=== PATIENT | male | born 1960 | race Hispanic/Latino ===

== ENCOUNTER 2019-12-27 08:11 | Emergency (ER) | payer SELFPAY ==
[2019-12-27 08:18] VITALS: BP 185/108
== END 2019-12-27 08:30 | disposition left against medical advice (07) ==
LOC: ED 08:11
DX: M54.9 Dorsalgia, unspecified (principal); Z53.21 Procedure and treatment not carried out due to patient leaving prior to being seen by health care provider

== ENCOUNTER 2021-02-13 08:40 | Emergency (ER) | payer MEDICARE ==
[2021-02-13 08:48] VITALS: BP 178/106
[2021-02-13] MEDS ORDERED: KETOROLAC 60 MG/2 ML INJ IM ONE (09:35)
--- NOTE | 2021-02-13 09:39 | Emergency Department Report ---
ED Back Pain/Injury HPI - General Chief Complaint: Back Pain/Injury Stated Complaint: BACK PAIN Time Seen by Provider: 02/13/21 09:23 Source: patient Limitations: No Limitations - History of Present Illness Initial Comments: 60-year-old male with a history of chronic back pain. States his back has been hurting for the last 4 to 5 weeks. He has a history of back surgery back in 1996 had been with pain management. But states that he lost transportation and has not been able to go to his pain management doctor for about 6 months now. Patient has no other complaints it is noted that his blood pressure is 178/106 patient states that he has a follow-up appointment with PCP which she plans to schedule on Monday and will discuss his blood pressure with his doctor then. He denies any recent falls or trauma he has no difficulty walking no bowel or bladder incontinence. Well-appearing 60-year-old male in no acute distress -: week(s) Similar Symptoms Previously: Yes (HasBack surgery in 1996) Radiation: other (Right lower back) Severity scale (0 -10): 6 Quality: aching Consistency: constant Improves With: none Worsens With: none Associated Symptoms: denies other symptoms - Related Data Previous Rx's Medication Instructions Recorded Last Taken Type traMADoL [Ultram 50 MG tab] 50 mg PO Q6HR PRN #15 tablet 02/13/21 Unknown Rx Allergies Allergy/AdvReac Type Severity Reaction Status Date / Time No Known Allergies Allergy Unverified 12/27/19 08:13 ED Review of Systems ROS: Stated complaint: BACK PAIN Other details as noted in HPI Comment: All other systems reviewed and negative Constitutional: denies: chills, fever, weakness ENT: denies: ear pain, dental pain, hearing loss Respiratory: no symptoms reported. denies: shortness of breath, wheezing Cardiovascular: denies: chest pain, palpitations, dyspnea on exertion Gastrointestinal: denies: abdominal pain, constipation Musculoskeletal: back pain (Right lower back) Neurological: denies: headache, numbness Psychiatric: denies: anxiety, auditory hallucinations, suicidal thoughts ED Past Medical Hx - Past Medical History Previous Medical History?: Yes - Surgical History Past Surgical History?: Yes Additional Surgical History: BACK - Social History Smoking Status: Current Every Day Smoker Substance Use Type: None - Medications Home Medications: Home Medications Medication Instructions Recorded Confirmed Last Taken Type traMADoL [Ultram 50 MG tab] 50 mg PO Q6HR PRN #15 tablet 02/13/21 Unknown Rx ED Physical Exam - General Limitations: No Limitations General appearance: alert, in no apparent distress - Head Head exam: Present: atraumatic, normal inspection - Eye Eye exam: Present: normal appearance - ENT ENT exam: Present: normal exam - Respiratory Respiratory exam: Present: normal lung sounds bilaterally - Cardiovascular Cardiovascular Exam: Present: regular rate - GI/Abdominal GI/Abdominal exam: Present: soft. Absent: distended, tenderness - Rectal Rectal exam: Present: deferred - Extremities Exam Extremities exam: Present: normal inspection - Back Exam Back exam: Present: normal inspection, full ROM, paraspinal tenderness (Right). Absent: vertebral tenderness, rash noted - Neurological Exam Neurological exam: Present: alert, oriented X3 - Psychiatric Psychiatric exam: Present: normal affect - Skin Skin exam: Present: warm, dry, intact, normal color ED Course Vital Signs 02/13/21 02/13/21 08:43 09:40 Temperature 98 F Pulse Rate 105 H Respiratory 16 18 Rate Blood Pressure 178/106 O2 Sat by Pulse 96 Oximetry ED Medical Decision Making - Medical Decision Making 60-year-old male with a history of chronic back pain he reports a history of back surgery back in 1996. He reports having lower back pain over the last 4 to 5 weeks. Patient lost his transportation to pain management states he has not had any follow-up with pain management for 6 months. He denies any falls any traumas any known injuries no new motor vehicle accidents he has no bowel or bladder incontinence he walks with a steady gait. This is chronic back pain plan to refer patient for outpatient follow-up he is given Toradol 60 IM and a short course of tramadol Critical Care Time: No Critical care attestation.: If time is entered above; I have spent that time in minutes in the direct care of this critically ill patient, excluding procedure time. ED Disposition Clinical Impression: Chronic low back pain Qualifiers: Back pain laterality: right Sciatica presence: without sciatica Qualified Code(s): M54.5 - Low back pain Disposition: TO HOME OR SELFCARE Is pt being admited?: No Does the pt Need Aspirin: No Condition: Stable Instructions: Chronic Back Pain, [id number], Pain Medicine Instructions, [id number] Additional Instructions: Take medication as prescribed. Follow-up with your PCP or with Dr. Jaffe .Please follow-up regarding your blood pressure your blood pressure reading was 178/106 in the emergency room today it is imperative that you seek follow-up for treatment and management of your blood pressure. If you develop headache chest pain or shortness of breath or weakness please repeat return to the emergency room immediately Prescriptions: traMADoL [Ultram 50 MG tab] 50 mg PO Q6HR PRN #15 tablet PRN Reason: Pain Referrals: PRIMARY CAREMD [Referring] - 3-5 Days BOGDAN JAFFE MD [Staff Physician] - 3-5 Days Time of Disposition: 09:46
== END 2021-02-13 09:51 | disposition home or self-care (01) ==
LOC: ED 08:40
DX: M54.5 Low back pain (principal); G89.29 Other chronic pain; F17.200 Nicotine dependence, unspecified, uncomplicated; Z79.899 Other long term (current) drug therapy; Z98.890 Other specified postprocedural states
CPT/HCPCS: 96372; 99282; J1885

== ENCOUNTER 2021-04-18 13:46 | Emergency (ER) | payer MEDICARE | END 2021-04-18 19:00 | LOC: ED 13:46 | DX: M54.6 Pain in thoracic spine (principal); Z53.21 Procedure and treatment not carried out due to patient leaving prior to being seen by health care provider ==

== ENCOUNTER 2021-05-04 14:26 | Emergency (ER) | payer MEDICARE | END 2021-05-04 15:46 | disposition left against medical advice (07) | LOC: ED 14:26 | DX: R69 Illness, unspecified (principal); Z53.21 Procedure and treatment not carried out due to patient leaving prior to being seen by health care provider ==

== ENCOUNTER 2021-05-04 17:53 | Emergency (ER) | payer MEDICARE ==
--- NOTE | 2021-05-04 19:47 | Event Note ---
ED Screening Note Date of service: 05/04/21 Time: 19:46 ED Screening Note: 60-year-old male presents to the ER today with complaints of substernal chest pain. Onset 2 days ago. It was intermittent at first but he states that it became constant today. He reports pain is worse if very deep breath he also reports feeling dizzy and difficulty focusing. Past medical history significant for hypertension. This initial assessment/diagnostic orders/clinical plan/treatment(s) is/are subject to change based on patients health status, clinical progression and re- assessment by fellow clinical providers in the ED. Further treatment and workup at subsequent clinical providers discretion. Patient/guardian urged not to elope from the ED as their condition may be serious if not clinically assessed and managed. Initial orders include: Chest pain order set
[2021-05-04 20:02] LABS: Basophils # (Auto) 0.1 K/mm3 (0.0-0.1); Basophils % (Auto) 0.8 % (0.0-1.8); Eosinophils # (Auto) 0.1 K/mm3 (0.0-0.4); Hematocrit 37.8 % (35.5-45.6); Hemoglobin 12.9 gm/dl (11.8-15.2); Lymphocytes # (Auto) 1.2 K/mm3 (1.2-5.4); Lymphocytes % (Auto) 16.6 % (13.4-35.0); Mean Corpuscular HGB Conc 34 % (32-34); Mean Corpuscular Volume 96 fl (84-94); Monocytes # (Auto) 0.7 K/mm3 (0.0-0.8); Monocytes % (Auto) 9.7 % (0.0-7.3); Platelet Count 187 K/mm3 (140-440); Red Blood Count 3.93 M/mm3 (3.65-5.03); Red Cell Distribution Width 14.2 % (13.2-15.2)
[2021-05-04 20:09] LABS: INR 1.07 (0.87-1.13)
[2021-05-04 20:10] LABS: Partial Thromboplastin Time 38.6 Sec. (24.2-36.6)
[2021-05-04 20:24] LABS: Alanine Aminotransferase 14 units/L (7-56); Albumin 4.6 g/dL (3.9-5); BUN/Creatinine Ratio 23; Blood Urea Nitrogen 30 mg/dL (9-20); Calcium 9.4 mg/dL (8.4-10.2); Hemolysis Index 9
--- NOTE | 2021-05-04 20:43 | XRay Report ---
CHEST 2 VIEWS INDICATION: Chest Pain. COMPARISON: FINDINGS: Support devices: None. Heart: Within normal limits. Lungs: No acute air space or interstitial disease. Pleura: No significant pleural effusion. No pneumothorax. Additional findings: None. IMPRESSION: 1. No acute findings. Signer Name: Esa Batres MD Signed: 05/04/2021 8:39 PM Workstation Name: [id number]
--- NOTE | 2021-05-04 21:11 | Emergency Department Report ---
ED Chest Pain HPI - General Chief Complaint: Chest Pain Stated Complaint: CHEST PAIN PUI?: No Time Seen by Provider: 05/04/21 20:59 Source: patient Mode of arrival: Ambulatory Limitations: No Limitations - History of Present Illness Initial Comments: Chief complaint: "Tightness in my chest." HPI: This is a 60-year-old male with a history of tobacco dependence, hypertension who presents with chest tightness which began gradually 2 days ago. Chest tightness is mostly at rest. Worse with deep inspiration. Mild. No radiation. Dry cough. No fever no vomiting. No recent travel. No leg pain. Patient did not receive Covid 19 vaccine. Unknown's exposure. Patient is followed by PCP at [facility]. Patient is currently pain-free. No history of cardiac disease. No family history of cardiac disease. MD Complaint: chest pain -: Gradual, days(s) (2 days ago) Onset: during rest Pain Location: substernal Pain Radiation: none Severity: mild Severity scale (0 -10): 6 Quality: tightness Consistency: intermittent, now resolved Improves With: nothing Worsens With: inspiration Other Symptoms: cough Treatments Prior to Arrival: other (Transport per EMS) - Related Data Previous Rx's Medication Instructions Recorded Last Taken Type traMADoL [Ultram 50 MG tab] 50 mg PO Q6HR PRN #15 tablet 02/13/21 Unknown Rx Doxycycline Hyclate [Doxycycline 100 mg PO Q12HR 7 Days #14 tab 05/04/21 Unknown Rx Hyclate TAB] Prednisone [predniSONE 10 mg 10 mg PO .TAPER #1 tab.ds.pk 05/04/21 Unknown Rx (6-Day Pack, 21 Tabs)] Allergies Allergy/AdvReac Type Severity Reaction Status Date / Time No Known Allergies Allergy Unverified 12/27/19 08:13 Heart Score - HEART Score History: Slightly suspicious EKG: Non-specific Age: 45-65 Risk factors: 1-2 risk factors Troponin: < normal limit HEART Score: 3 - EKG Read Time Time EKG Completed: 18:54 EKG Read Time: 18:56 ED Review of Systems ROS: Stated complaint: CHEST PAIN Other details as noted in HPI Comment: All other systems reviewed and negative Constitutional: denies: fever, malaise Respiratory: cough. denies: shortness of breath Cardiovascular: chest pain Gastrointestinal: denies: abdominal pain, nausea, vomiting ED Past Medical Hx - Past Medical History Previous Medical History?: Yes Hx Hypertension: Yes - Surgical History Past Surgical History?: Yes Additional Surgical History: BACK - Family History Family history: no significant - Social History Smoking Status: Current Every Day Smoker Substance Use Type: None - Medications Home Medications: Home Medications Medication Instructions Recorded Confirmed Last Taken Type traMADoL [Ultram 50 MG tab] 50 mg PO Q6HR PRN #15 tablet 02/13/21 Unknown Rx Doxycycline Hyclate [Doxycycline 100 mg PO Q12HR 7 Days #14 tab 05/04/21 Unknown Rx Hyclate TAB] Prednisone [predniSONE 10 mg 10 mg PO .TAPER #1 tab.ds.pk 05/04/21 Unknown Rx (6-Day Pack, 21 Tabs)] ED Physical Exam - General Limitations: No Limitations General appearance: alert, in no apparent distress, other (Sleeping with covers over his head easily arousable) - Head Head exam: Present: atraumatic, normocephalic - Eye Eye exam: Present: normal appearance - ENT ENT exam: Present: mucous membranes moist - Neck Neck exam: Present: normal inspection - Respiratory Respiratory exam: Present: normal lung sounds bilaterally. Absent: respiratory distress, wheezes, rales, rhonchi - Cardiovascular Cardiovascular Exam: Present: regular rate, normal rhythm, normal heart sounds. Absent: systolic murmur, diastolic murmur, rubs, gallop - GI/Abdominal GI/Abdominal exam: Present: soft, normal bowel sounds. Absent: distended, ten derness, guarding, rebound - Rectal Rectal exam: Present: deferred - Extremities Exam Extremities exam: Present: normal inspection - Neurological Exam Neurological exam: Present: alert, oriented X3 - Psychiatric Psychiatric exam: Present: normal affect, normal mood - Skin Skin exam: Present: warm, dry, intact, normal color. Absent: rash ED Course Vital Signs 05/04/21 18:43 Temperature 98.3 F Pulse Rate 89 Respiratory 18 Rate Blood Pressure 154/88 [Right] O2 Sat by Pulse 97 Oximetry ED Medical Decision Making - Lab Data Result diagrams: 05/04/21 19:49 05/04/21 19:49 Laboratory Results - last 24 hr 05/04/21 05/04/21 05/04/21 19:49 19:49 19:49 WBC 7.0 RBC 3.93 Hgb 12.9 Hct 37.8 MCV 96 H MCH 33 H MCHC 34 RDW 14.2 Plt Count 187 Lymph % (Auto) 16.6 Potter % (Auto) 9.7 H Eos % (Auto) 2.0 Baso % (Auto) 0.8 Lymph # (Auto) 1.2 Potter # (Auto) 0.7 Eos # (Auto) 0.1 Baso # (Auto) 0.1 Seg Neutrophils % 70.9 H Seg Neutrophils # 5.0 PT 14.4 INR 1.07 APTT 38.6 H Sodium 138 Potassium 4.3 Chloride 100.8 Carbon Dioxide 27 Anion Gap 15 BUN 30 H Creatinine 1.3 Estimated GFR 56 BUN/Creatinine Ratio 23 Glucose 75 Calcium 9.4 Total Bilirubin 0.20 AST 21 ALT 14 Alkaline Phosphatase 62 Troponin T < 0.010 Total Protein 7.1 Albumin 4.6 Albumin/Globulin Ratio 1.8 Lipase 27 - EKG Data -: EKG Interpreted by Nd EKG shows normal: sinus rhythm, axis, intervals, QRS complexes Rate: normal - EKG Data Interpretation: nonspecific ST-T wave pooja, LVH 05/04/21 21:09 EKG obtained 1854 EKG interpreted by fl Normal sinus rhythm rate 85 bpm normal axis normal intervals no ST elevation nonspecific T wave pattern positive LVH - Radiology Data Radiology results: report reviewed Patient Name: MARISELA SALMON Gender: Male Date of : 1960 Referring Provider: LOC ANDERSON Organization: [facility] Accession Number: [id number] Requested Date: May 04, 2021 19:45 Report Status: Final Requested Procedure: 1 Procedure Description: XR chest routine 2V Modality: XR Findings Reporting MD: Esa Batres Dictation Time: May 04, 2021 19:39 Product Control And Logistics Analyst: Not available Catechist Date: CHEST 2 VIEWS INDICATION: Chest Pain. COMPARISON: FINDINGS: Support devices: None. Heart: Within normal limits. Lungs: No acute air space or interstitial disease. Pleura: No significant pleural effusion. No pneumothorax. Additional findings: None. IMPRESSION: 1. No acute findings. Signer Name: Esa Batres MD Signed: 05/04/2021 7:39 PM Workstation Name: [id number] - Medical Decision Making Chest pain: Atypical for ACS, troponin negative. EKG nonspecific. I suspect acute bronchitis with history of tobacco use. No indication of life-threatening causes such as pulmonary embolism, pneumonia, aortic dissection. Patient appears comfortable. I have referred patient to sales support advisor. I recommended outpatient evaluation. I also recommended tobacco cessation. Recommend follow- up with his PCP Brian Clovin. CBC chemistry within normal limits. Next Chest x-ray without acute findings. I have faxed cardiology referral request to [facility]. Patient prescribed prednisone doxycycline for acute bronchitis. Discharged home. Critical care attestation.: If time is entered above; I have spent that time in minutes in the direct care of this critically ill patient, excluding procedure time. ED Disposition Clinical Impression: Non-cardiac chest pain, Acute bronchitis Disposition: TO HOME OR SELFCARE Is pt being admited?: No Does the pt Need Aspirin: No Condition: Stable Instructions: Nonspecific Chest Pain, Adult, Acute Bronchitis (ED), Acute Bronchitis, Adult, [id number] Prescriptions: Doxycycline Hyclate [Doxycycline Hyclate TAB] 100 mg PO Q12HR 7 Days #14 tab Prednisone [predniSONE 10 mg (6-Day Pack, 21 Tabs)] 10 mg PO .TAPER #1 tab.ds.pk Referrals: ORESTES MANDEL MD [Staff Physician] - 3-5 Days PRIMARY CARE, [Referring] - 3-5 Days
[2021-05-04] MEDS ORDERED: ACETAMINOPHEN 500 MG TAB PO ONE (21:13)
[2021-05-04] MEDS ORDERED: predniSONE 20 MG TAB PO ONE (21:13)
[2021-05-04 21:30] VITALS: BP 139/79
--- NOTE | 2021-05-13 10:47 | Electrocardiograph Report ---
[facility] Test Date: 2021-05-04 Test Time: 18:54:55 Pat Name: MARISELA SALMON Department: Room: Gender: M Analyst [employer]: KEVEN : 1960 Requested By: LOC ANDERSON Order Number: [id number] Reading MD: Terrence Peck Measurements Intervals [place] Rate: 85 P: 53 NE: 154 QRS: 6 QRSD: 88 T: 63 QT: 384 QTc: 458 Interpretive Statements Sinus rhythm Probable left atrial enlargement Probable left ventricular hypertrophy Inferior infarct, old No previous ECG available for comparison Electronically Signed On 05-13-2021 10:47:21 EDT by Terrence Peck
== END 2021-05-04 21:43 | disposition home or self-care (01) ==
LOC: ED 17:53
DX: J20.9 Acute bronchitis, unspecified (principal); R07.89 Other chest pain; I10 Essential (primary) hypertension; F17.200 Nicotine dependence, unspecified, uncomplicated; Z98.890 Other specified postprocedural states; Z79.899 Other long term (current) drug therapy
CPT/HCPCS: 36415; 71046; 80053; 83690; 84484; 85025; 85610; 85730; 93005; 99284; J7512

== ENCOUNTER 2022-03-08 10:45 | Emergency (ER) | payer MEDICARE ==
[2022-03-08 10:50] VITALS: BP 181/100
[2022-03-08] MEDS ORDERED: CYCLOBENZAPRINE 10 MG TAB PO ONE (12:18)
[2022-03-08] MEDS ORDERED: oxyCODONE /ACETAMINOPHEN 5-325MG TAB PO ONE (12:18)
[2022-03-08] MEDS ORDERED: KETOROLAC 10 MG TAB PO ONE (12:18)
--- NOTE | 2022-03-08 12:19 | Emergency Department Report ---
ED Extremity Problem HPI - General Chief complaint: Extremity Injury, Lower Stated complaint: CHRONIC FOOT PAIN/RT Time Seen by Provider: 03/08/22 12:06 Source: EMS Mode of arrival: Ambulatory Limitations: No Limitations - History of Present Illness Initial comments: 61-year-old white male with a past medical history of hypertension and chronic back pain presents to the emergency department for evaluation of right foot pain lower back pain. He states that for the last month he has had pain on the bottom of his right foot. He denies injury. He also complains of worsening back pain he states that he has not been able to get his regular pain medication. He denies any injury to his back MD Complaint: extremity pain -: Gradual, month(s) (1) Location: right, other History of Same: Yes -: No myalgia, No arthralgia, No fever, No associated dyspnea, No associated chest pain Severity scale (0 -10): 2 Quality: aching Consistency: constant Associated Symptoms: denies: chest pain, shortness of breath, fever, myalgias, arthralgias, rash - Related Data Previous Rx's Medication Instructions Recorded Last Taken Type traMADoL [Ultram 50 MG tab] 50 mg PO Q6HR PRN #15 tablet 02/13/21 Unknown Rx Doxycycline Hyclate [Doxycycline 100 mg PO Q12HR 7 Days #14 tab 05/04/21 Unknown Rx Hyclate TAB] Prednisone [predniSONE 10 mg 10 mg PO .TAPER #1 tab.ds.pk 05/04/21 Unknown Rx (6-Day Pack, 21 Tabs)] Cyclobenzaprine [Flexeril] 10 mg PO TID PRN #21 tab 03/08/22 Unknown Rx Lidocaine [Lidoderm] 1 each TP DAILY #10 patch 03/08/22 Unknown Rx Salicylic Acid/Foot Cushion 15 ml TP Q72HR #1 pack 03/08/22 Unknown Rx [Liquid [place]ol[place] & Callus Remover] Allergies Allergy/AdvReac Type Severity Reaction Status Date / Time No Known Allergies Allergy Verified 03/08/22 10:50 ED Review of Systems ROS: Stated complaint: CHRONIC FOOT PAIN/RT Other details as noted in HPI Comment: All other systems reviewed and negative Constitutional: denies: chills, fever Respiratory: denies: shortness of breath, SOB at rest Cardiovascular: denies: chest pain, palpitations Gastrointestinal: denies: abdominal pain, nausea, vomiting, diarrhea Genitourinary: denies: urgency, dysuria, frequency, hematuria, discharge, testicular pain Musculoskeletal: back pain Neurological: denies: headache, weakness ED Past Medical Hx - Past Medical History Hx Hypertension: Yes - Surgical History Additional Surgical History: BACK - Social History Smoking Status: Current Every Day Smoker Substance Use Type: None - Medications Home Medications: Home Medications Medication Instructions Recorded Confirmed Last Taken Type traMADoL [Ultram 50 MG tab] 50 mg PO Q6HR PRN #15 tablet 02/13/21 Unknown Rx Doxycycline Hyclate [Doxycycline 100 mg PO Q12HR 7 Days #14 tab 05/04/21 Unknown Rx Hyclate TAB] Prednisone [predniSONE 10 mg 10 mg PO .TAPER #1 tab.ds.pk 05/04/21 Unknown Rx (6-Day Pack, 21 Tabs)] Cyclobenzaprine [Flexeril] 10 mg PO TID PRN #21 tab 03/08/22 Unknown Rx Lidocaine [Lidoderm] 1 each TP DAILY #10 patch 03/08/22 Unknown Rx Salicylic Acid/Foot Cushion 15 ml TP Q72HR #1 pack 03/08/22 Unknown Rx [Liquid [place]ol[place] & Callus Remover] ED Physical Exam - General Limitations: No Limitations General appearance: alert, in no apparent distress - Head Head exam: Present: atraumatic, normocephalic - Eye Eye exam: Present: normal appearance. Absent: conjunctival injection - Neck Neck exam: Present: normal inspection, full ROM. Absent: tenderness - Respiratory Respiratory exam: Absent: respiratory distress - Cardiovascular Cardiovascular Exam: Present: regular rate - GI/Abdominal GI/Abdominal exam: Absent: distended - Expanded Lower Extremity Exam Right Foot/Toe exam: Present: tenderness. Absent: normal inspection (Noted to have callus on sole of foot near fourth digit), swelling, abrasion, laceration, ecchymosis, deformity, puncture wound Neuro vascular tendon exam: Present: no vascular compromise. Absent: pulse deficit, abnormal cap refill, motor deficit, sensory deficit, extremity cold to touch Gait: Positive: observed and limited by pain - Back Exam Back exam: Present: normal inspection, tenderness (Bilateral lower). Absent: CVA tenderness (R), CVA tenderness (L), vertebral tenderness - Neurological Exam Neurological exam: Present: alert, oriented X3 - Psychiatric Psychiatric exam: Present: normal affect, normal mood - Skin Skin exam: Present: warm, dry, intact, normal color ED Course Vital Signs 03/08/22 10:49 Temperature 98 F Pulse Rate 90 Respiratory 16 Rate Blood Pressure 181/100 [Right] O2 Sat by Pulse 98 Oximetry ED Medical Decision Making - Medical Decision Making 61-year-old white male with a past medical history of hypertension and chronic back pain presents to the emergency department for evaluation of right foot pain lower back pain. He states that for the last month he has had pain on the bottom of his right foot. He denies injury. He also complains of worsening back pain he states that he has not been able to get his regular pain medication. He denies any injury to his back Exam consistent with callus on bottom of right foot. Patient will be treated with salicylic acid pads to use. Patient without new injury to the back but complains of increasing pain from chronic back pain. Patient was treated with one-time dose of Percocet, Toradol, Flexeril while in the emergency department will be DC'd home with Flexeril prescription and Lidoderm prescription to use as needed at home. He is advised to take medications as prescribed and follow-up with primary care provider if no improvement or worsening symptoms. He verbalized understanding of and agreement with plan of care. Critical care attestation.: If time is entered above; I have spent that time in minutes in the direct care of this critically ill patient, excluding procedure time. ED Disposition Clinical Impression: Callus of foot Back pain Qualifiers: Back pain location: low back pain Chronicity: chronic Back pain laterality: right Sciatica presence: without sciatica Qualified Code(s): M54.50 - Low back pain, unspecified Disposition: 01 HOME / SELF CARE / HOMELESS Is pt being admited?: No Does the pt Need Aspirin: No Condition: Stable Instructions: Corns and Calluses, Chronic Back Pain, [id number] Additional Instructions: Take medications as prescribed, and follow up with primary care provider if no improvement or worsening symptoms. Prescriptions: Cyclobenzaprine [Flexeril] 10 mg PO TID PRN #21 tab PRN Reason: Muscle Spasm Lidocaine [Lidoderm] 1 each TP DAILY #10 patch Salicylic Acid/Foot Cushion [Liquid [place]ol[place] & Callus Remover] 15 ml TP Q72HR #1 pack Referrals: ATUL STANLEY MD [Referring] - 3-5 Days Time of Disposition: 12:23
== END 2022-03-08 13:48 | disposition home or self-care (01) ==
LOC: ED 10:45
DX: M54.50 Low back pain, unspecified (principal)
CPT/HCPCS: 99283

== ENCOUNTER 2022-04-17 14:59 | Emergency (ER) | payer MEDICARE ==
[2022-04-17 15:06] VITALS: BP 151/88
== END 2022-04-18 16:09 | disposition left against medical advice (07) ==
LOC: ED 14:59
DX: M79.673 Pain in unspecified foot (principal); Z53.21 Procedure and treatment not carried out due to patient leaving prior to being seen by health care provider

== ENCOUNTER 2022-05-12 18:08 | Emergency (ER) | payer MEDICARE ==
[2022-05-12 18:36] VITALS: BP 135/86
[2022-05-13] MEDS ORDERED: KETOROLAC 30 MG/1 ML INJ IM ONE (01:26)
[2022-05-13] MEDS ORDERED: dexAMETHasone 20 MG/5 ML VIAL IM ONE (01:26)
--- NOTE | 2022-05-13 01:44 | Emergency Department Report ---
ED Back Pain/Injury HPI - General Chief Complaint: Back Pain/Injury Stated Complaint: BACK PAIN Time Seen by Provider: 05/13/22 01:25 Source: patient, EMS Limitations: No Limitations - History of Present Illness Initial Comments: Patient 61-year-old male with a history of chronic low back pain. Patient presents tonight for 4/10 low back pain states he is out of Percocet which is ordered by his primary care p.o. As needed back pain. Patient denies fall injury or trauma. Pain for the last week. Symptoms are exacerbated by movement bending or twisting. Pain is relieved by rest. Patient remains alert oriented x3 amatory with steady gait. Patient denies loss or decrease in bowel or bladder function. MD Complaint: back pain - Related Data Previous Rx's Medication Instructions Recorded Last Taken Type RX: traMADoL [Ultram 50 MG tab] 50 mg PO Q6HR PRN #15 tablet 02/13/21 Unknown Rx Prednisone [predniSONE 10 mg 10 mg PO .TAPER #1 tab.ds.pk 05/04/21 Unknown Rx (6-Day Pack, 21 Tabs)] RX: Doxycycline Hyclate 100 mg PO Q12HR 7 Days #14 tab 05/04/21 Unknown Rx [Doxycycline Hyclate TAB] Cyclobenzaprine [Flexeril] 10 mg PO TID PRN #21 tab 03/08/22 Unknown Rx Lidocaine [Lidoderm] 1 each TP DAILY #10 patch 03/08/22 Unknown Rx RX: Salicylic Acid/Foot Cushion 15 ml TP Q72HR #1 pack 03/08/22 Unknown Rx [Liquid [place] & Callus Remover] Cyclobenzaprine [Flexeril] 10 mg PO BID PRN #15 tab 05/13/22 Unknown Rx Menthol/Camphor [[place] Patch] 1 each TP Q6H PRN #1 tube 05/13/22 Unknown Rx RX: Acetaminophen 1,000 mg PO Q6H PRN #60 cap 05/13/22 Unknown Rx RX: Acetaminophen [Non-Aspirin 100 mg PO Q6H PRN #60 tab 05/13/22 Unknown Rx Pain Relief] Allergies Allergy/AdvReac Type Severity Reaction Status Date / Time No Known Allergies Allergy Verified 05/12/22 18:36 ED Review of Systems ROS: Stated complaint: BACK PAIN Other details as noted in HPI Constitutional: denies: chills, fever Eyes: denies: eye pain, eye discharge, vision change ENT: denies: ear pain, throat pain, hearing loss Respiratory: denies: cough, shortness of breath, wheezing Cardiovascular: denies: chest pain, palpitations, dyspnea on exertion Endocrine: no symptoms reported Gastrointestinal: abdominal pain, nausea, vomiting Genitourinary: denies: urgency, dysuria Musculoskeletal: back pain, arthralgia, myalgia. denies: joint swelling Skin: denies: rash, lesions Neurological: denies: headache, weakness, numbness, paresthesias, confusion, vertigo Psychiatric: denies: anxiety, depression Hematological/Lymphatic: denies: easy bleeding, easy bruising ED Past Medical Hx - Past Medical History Hx Hypertension: Yes - Surgical History Additional Surgical History: BACK - Social History Smoking Status: Current Every Day Smoker Substance Use Type: None - Medications Home Medications: Home Medications Medication Instructions Recorded Confirmed Last Taken Type RX: traMADoL [Ultram 50 MG tab] 50 mg PO Q6HR PRN #15 tablet 02/13/21 Unknown Rx Prednisone [predniSONE 10 mg 10 mg PO .TAPER #1 tab.ds.pk 05/04/21 Unknown Rx (6-Day Pack, 21 Tabs)] RX: Doxycycline Hyclate 100 mg PO Q12HR 7 Days #14 tab 05/04/21 Unknown Rx [Doxycycline Hyclate TAB] Cyclobenzaprine [Flexeril] 10 mg PO TID PRN #21 tab 03/08/22 Unknown Rx Lidocaine [Lidoderm] 1 each TP DAILY #10 patch 03/08/22 Unknown Rx RX: Salicylic Acid/Foot Cushion 15 ml TP Q72HR #1 pack 03/08/22 Unknown Rx [Liquid [place] & Callus Remover] Cyclobenzaprine [Flexeril] 10 mg PO BID PRN #15 tab 05/13/22 Unknown Rx Menthol/Camphor [[place] Patch] 1 each TP Q6H PRN #1 tube 05/13/22 Unknown Rx RX: Acetaminophen 1,000 mg PO Q6H PRN #60 cap 05/13/22 Unknown Rx RX: Acetaminophen [Non-Aspirin 100 mg PO Q6H PRN #60 tab 05/13/22 Unknown Rx Pain Relief] ED Physical Exam - General Limitations: No Limitations General appearance: alert, in no apparent distress - Head Head exam: Present: atraumatic, normocephalic - Eye Eye exam: Present: EOMI Pupils: Present: normal accommodation - ENT ENT exam: Present: normal exam - Neck Neck exam: Present: normal inspection, full ROM. Absent: tenderness, lymphadenopathy - Respiratory Respiratory exam: Present: normal lung sounds bilaterally, wheezes, rales, rhonchi, stridor, chest wall tenderness. Absent: respiratory distress - Cardiovascular Cardiovascular Exam: Present: regular rate, normal rhythm, normal heart sounds. Absent: systolic murmur, diastolic murmur, rubs, gallop - GI/Abdominal GI/Abdominal exam: Present: soft, normal bowel sounds. Absent: distended, tenderness, guarding, rebound, bruit, hernia - Rectal Rectal exam: Present: deferred, normal inspection - Extremities Exam Extremities exam: Present: normal inspection - Back Exam Back exam: Present: normal inspection, full ROM, muscle spasm. Absent: CVA tenderness (R), CVA tenderness (L) - Expanded Back Exam Expanded Back exam: Absent: saddle anesthesia Back exam: Sciatic Notch Tenderness: Left, Positive Straight Leg Raise: Right - Neurological Exam Neurological exam: Present: alert, oriented X3, normal gait - Psychiatric Psychiatric exam: Present: normal affect, normal mood - Skin Skin exam: Present: warm, dry, intact, normal color. Absent: rash ED Course Vital Signs 05/12/22 18:32 Temperature 98.5 F Pulse Rate 94 H Respiratory 16 Rate Blood Pressure 135/86 [Left] O2 Sat by Pulse 98 Oximetry ED Medical Decision Making - Medical Decision Making Pain is improved with medications given in ED. Plan DC to home, take medications as prescribed, moist heat therapy. Follow-up with your primary care doctor tomorrow return to emergency department should symptoms worsen. Patient is currently alert oriented x3 patient is amatory with steady gait patient with no acute distress at this time. There is no numbness no tingling no loss or decrease in bowel or bladder function. Critical care attestation.: If time is entered above; I have spent that time in minutes in the direct care of this critically ill patient, excluding procedure time. ED Disposition Clinical Impression: Low back strain Qualifiers: Encounter type: initial encounter Qualified Code(s): S39.012A - Strain of muscle, fascia and tendon of lower back, initial encounter Disposition: HOME / SELF CARE / HOMELESS Is pt being admited?: No Does the pt Need Aspirin: No Condition: Stable Instructions: Low Back Sprain or Strain Rehab-SportsMed Additional Instructions: Take medications as prescribed. Use warm moist heat therapy as directed. Follow-up with your primary care doctor in 2 to 3 days. Return to emergency department should symptoms worsen Prescriptions: RX: Acetaminophen 1,000 mg PO Q6H PRN #60 cap PRN Reason: pain Cyclobenzaprine [Flexeril] 10 mg PO BID PRN #15 tab PRN Reason: Muscle Spasm RX: Acetaminophen [Non-Aspirin Pain Relief] 100 mg PO Q6H PRN #60 tab PRN Reason: pain Menthol/Camphor [[place] Patch] 1 each TP Q6H PRN #1 tube PRN Reason: pain Referrals: MEENU JACOBO MD [Primary Care Provider] - 3-5 Days Forms: Work/School Release Form(ED) Time of Disposition: 04:52
== END 2022-05-13 06:00 | disposition home or self-care (01) ==
LOC: ED 18:08
DX: S39.012A Strain of muscle, fascia and tendon of lower back, initial encounter (principal); I10 Essential (primary) hypertension; F17.200 Nicotine dependence, unspecified, uncomplicated; Z79.899 Other long term (current) drug therapy; X58.XXXA Exposure to other specified factors, initial encounter; Y93.89 Activity, other specified; Y92.89 Other specified places as the place of occurrence of the external cause; Y99.8 Other external cause status
CPT/HCPCS: 96372; 99282; J1100; J1885